=== PATIENT | male | born 1985 | race Caucasian/White ===

== ENCOUNTER 2017-02-22 19:02 | Emergency (ER) | payer OTHER ==
[2017-02-22 19:12] VITALS: TEMP 98.1
--- NOTE | 2017-02-22 19:41 | ED ---
ENT HPI - General Chief complaint: ENT Stated complaint: rt ear ache Time Seen by Provider: 02/22/17 19:18 Source: patient, RN notes reviewed Mode of arrival: ambulatory Limitations: no limitations - History of Present Illness Initial comments: Patient is 31-year-old male presents to the emergency room for evaluation of right ear pain. Patient states he was swimming at his father's house last Friday and noticed the pain began afterwards. Patient states he feels like his right ear is blocked. Patient states that decrease in hearing. Patient denies headache or dizziness. Patient denies fevers or chills. Patient denies sinus congestion or throat pain. Patient states that he has been applying over- the-counter ear drops without relief of symptoms. Patient denies any other symptoms or complaints. - Related Data Home Medications Medication Instructions Recorded Confirmed Ibuprofen 200 mg PO Q6HR PRN 02/22/17 02/22/17 Previous Rx's Medication Instructions Recorded Ofloxacin 0.3% Otic Soln [Floxin 5 drops RIGHT EAR BID 10 Days 02/22/17 0.3% Otic Soln] Allergies Allergy/AdvReac Type Severity Reaction Status Date / Time Penicillins Allergy Rash/Hives Verified 02/22/17 19:44 Review of Systems ROS Statement: Those systems with pertinent positive or pertinent negative responses have been documented in the HPI. ROS Other: All systems not noted in ROS Statement are negative. Past Medical History Past Medical History: No Reported History History of Any Multi-Drug Resistant Organisms: None Reported Past Surgical History: Orthopedic Surgery Additional Past Surgical History / Comment(s): left knee MCL Past Psychological History: No Psychological Hx Reported Smoking Status: Current every day smoker Past Alcohol Use History: Rare Past Drug Use History: Marijuana General Exam - General Exam Comments Initial Comments: Sitting in exam room, no acute distress. Limitations: no limitations General appearance: alert, in no apparent distress Head exam: Present: atraumatic, normocephalic, normal inspection Eye exam: Present: normal appearance Expanded TM/Canal exam: Cerumen Impaction: Right TM Neck exam: Present: normal inspection Respiratory exam: Present: normal lung sounds bilaterally. Absent: respiratory distress Cardiovascular Exam: Present: regular rate, normal rhythm, normal heart sounds Extremities exam: Present: normal inspection Back exam: Present: normal inspection Neurological exam: Present: alert, oriented X3, CN II-XII intact, normal gait Psychiatric exam: Present: normal affect, normal mood Skin exam: Present: warm, dry, intact, normal color. Absent: rash Course Vital Signs 02/22/17 19:07 Temperature 98.1 F Pulse Rate 75 Respiratory 16 Rate Blood Pressure 109/59 O2 Sat by Pulse 98 Oximetry Medical Decision Making - Medical Decision Making Patient is a 31-year-old male presents to the emergency room for evaluation of right ear pain. Patient did have cerumen impaction of right ear. Right ear was flushed. Patient states that he no longer has decrease in hearing. Patient states his ear canal still feels tender. Patient's ear canal is slightly erythematous and tender. Will place patient on antibiotic eardrops. Patient states she understands everything that was discussed with him. Return parameters discussed. Case discussed Dr. Castillo. Disposition Clinical Impression: Impacted cerumen of right ear, Otitis externa Disposition: HOME SELF-CARE Condition: Good Instructions: Otitis Externa (ED), Cerumen Impaction (ED) Additional Instructions: Apply eardrops as directed. Tylenol or Motrin as needed for discomfort. Please follow up with primary care provider in 1-2 days. If any new symptom arises or symptoms worsen, return to ER as soon as possible. Prescriptions: Ofloxacin 0.3% Otic Soln [Floxin 0.3% Otic Soln] 5 drops RIGHT EAR BID 10 Days Referrals: None,Stated [Primary Care Provider] - 1-2 days Time of Disposition: 20:14
[2017-02-22 20:38] VITALS: BP 107/68; PULSE 61; RESP 18
== END 2017-02-22 20:38 | disposition home or self-care (01) ==
LOC: EC 19:02
DX: H61.21 Impacted cerumen, right ear (principal); H60.91 Unspecified otitis externa, right ear; F17.200 Nicotine dependence, unspecified, uncomplicated; Z88.0 Allergy status to penicillin
CPT/HCPCS: 99282

== ENCOUNTER 2017-09-10 07:39 | Emergency (ER) | payer OTHER ==
[2017-09-10] MEDS ORDERED: SODIUM CHLORIDE 0.9% 1,000 ML IV STA (08:28)
[2017-09-10] MEDS ORDERED: KETOROLAC 30 MG/ML 1 ML VIAL IVP STA (08:28)
[2017-09-10 08:36] LABS: Basophils # (A) 0.1 k/uL (0-0.2); Basophils % (A) 1 %; Eosinophils # (A) 0.2 k/uL (0-0.7); Eosinophils % (A) 2 %; HCT 47.8 % (39.0-53.0); Lymphocytes # (A) 2.3 k/uL (1.0-4.8); Lymphocytes % (A) 25 %; MCH 30.8 pg (25.0-35.0); MCHC 31.3 g/dL (31.0-37.0); MCV 98.4 fL (80.0-100.0); Mean Platelet Volume 6.9; Monocytes # (A) 0.6 k/uL (0-1.0); Monocytes % (A) 6 %; Neutrophils # (A) 5.8 k/uL (1.3-7.7); Neutrophils % (A) 64 %; Platelet Count 297 k/uL (150-450); RBC 4.85 m/uL (4.30-5.90); RDW 13.9 % (11.5-15.5)
--- NOTE | 2017-09-10 08:43 | ED ---
General Adult HPI - General Chief complaint: Abdominal Pain Stated complaint: Kidney stones Time Seen by Provider: 09/10/17 08:16 Source: patient, RN notes reviewed Mode of arrival: ambulatory Limitations: no limitations - History of Present Illness Initial comments: Patient is a 31-year-old male who presents emergency room today with a significant past medical history of kidney stones, with chief complaint of possible kidney stone. Patient does admit that symptoms started 2 days ago he' s had some pressure some dysuria on urination. States pain seems to come and go. He was combative seen yesterday was waiting in the waiting room and the pain improves when he left because it was very busy. Patient states the symptoms are consistent with kidney stones that is had in the past. Currently rates his pain 12/16 stating that it has improved some since is been here in the emergency room. Patient denies any recent fever, chills, shortness of breath, chest pain, numbness or tingling, headaches or visual changes, or any other complaints. - Related Data Home Medications Medication Instructions Recorded Confirmed Ibuprofen 200 - 800 mg PO Q6HR PRN 02/22/17 09/10/17 Previous Rx's Medication Instructions Recorded Hydrocodone/Acetaminophen [[place] 1 each PO Q6HR PRN #20 tab 09/10/17 5-325] Ibuprofen [Motrin] 600 mg PO Q6HR PRN #40 day 09/10/17 Tamsulosin [Flomax] 0.4 mg PO DAILY #10 cap 09/10/17 Allergies Allergy/AdvReac Type Severity Reaction Status Date / Time Penicillins Allergy Rash/Hives Verified 09/10/17 08:03 Review of Systems ROS Statement: Those systems with pertinent positive or pertinent negative responses have been documented in the HPI. ROS Other: All systems not noted in ROS Statement are negative. Past Medical History Past Medical History: No Reported History Additional Past Medical History / Comment(s): kidney stones History of Any Multi-Drug Resistant Organisms: None Reported Past Surgical History: Orthopedic Surgery Additional Past Surgical History / Comment(s): left knee MCL Past Psychological History: No Psychological Hx Reported Smoking Status: Current every day smoker Past Alcohol Use History: Rare Past Drug Use History: Marijuana General Exam - General Exam Comments Initial Comments: General: The patient is awake and alert, in no distress, and does not appear acutely ill. Eye: Pupils are equal, round and reactive to light, extra-ocular movements are intact. No nystagmus. There is normal conjunctiva bilaterally. No signs of icterus. Ears, nose, mouth and throat: There are moist mucous membranes and no oral lesions. Neck: The neck is supple, there is no tenderness or JVD. Cardiovascular: There is a regular rate and rhythm. No murmur, rub or gallop is appreciated. Respiratory: Lungs are clear to auscultation, respirations are non-labored, breath sounds are equal. No wheezes, stridor, rales, or rhonchi. Gastrointestinal: Soft, non-distended, non-tender abdomen without masses or organomegaly noted. There is no rebound or guarding present. No CVA tenderness. Bowel sounds are unremarkable. Musculoskeletal: Normal ROM, no tenderness. Strength 5/5. Sensation intact. Pulses equal bilaterally 2+. Neurological: A&O x 3. CN II-XII intact, There are no obvious motor or sensory deficits. Coordination appears grossly intact. Speech is normal. Skin: Skin is warm and dry and no rashes or lesions are noted. Psychiatric: Cooperative, appropriate mood & affect, normal judgment. Limitations: no limitations Course Vital Signs 09/10/17 07:41 Temperature 97 F L Pulse Rate 84 Respiratory 16 Rate Blood Pressure 135/81 O2 Sat by Pulse 100 Oximetry Medical Decision Making - Medical Decision Making Patient's labs been reviewed. Does show some trace blood. Remaining labs unremarkable. X-ray does show a left-sided kidney stone. Results were discussed with patient. His symptoms are consistent with stones that is had in the past. He'll be treated with Flomax, pain medication to go home with and advised follow-up with urology. Advised return if symptoms increase or worsen. - Lab Data Result diagrams: 09/10/17 07:57 09/10/17 07:57 Lab Results 09/10/17 09/10/17 09/10/17 Range/Units 07:57 07:57 08:38 WBC 9.0 (3.8-10.6) k/uL RBC 4.85 (4.30-5.90) m/uL Hgb 15.0 (13.0-17.5) gm/dL Hct 47.8 (39.0-53.0) % MCV 98.4 (80.0-100.0) fL MCH 30.8 (25.0-35.0) pg MCHC 31.3 (31.0-37.0) g/dL RDW 13.9 (11.5-15.5) % Plt Count 297 (150-450) k/uL Neutrophils % 64 % Lymphocytes % 25 % Monocytes % 6 % Eosinophils % 2 % Basophils % 1 % Neutrophils # 5.8 (1.3-7.7) k/uL Lymphocytes # 2.3 (1.0-4.8) k/uL Monocytes # 0.6 (0-1.0) k/uL Eosinophils # 0.2 (0-0.7) k/uL Basophils # 0.1 (0-0.2) k/uL Sodium 144 (137-145) mmol/L Potassium 4.5 (3.5-5.1) mmol/L Chloride 104 (98-107) mmol/L Carbon Dioxide 29 (22-30) mmol/L Anion Gap 11 mmol/L BUN 13 (9-20) mg/dL Creatinine 1.18 (0.66-1.25) mg/dL Est GFR (MDRD) Af Amer >60 (>60 ml/min/1.73 sqM) Est GFR (MDRD) Non-Af >60 (>60 ml/min/1.73 sqM) Glucose 107 H (74-99) mg/dL Calcium 10.3 H (8.4-10.2) mg/dL Total Bilirubin 0.5 (0.2-1.3) mg/dL AST 22 (17-59) U/L ALT 37 (21-72) U/L Alkaline Phosphatase 60 (38-126) U/L Total Protein 7.3 (6.3-8.2) g/dL Albumin 4.5 (3.5-5.0) g/dL Lipase 47 (23-300) U/L Urine Color Yellow Urine Appearance Clear (Clear) Urine pH 5.5 (5.0-8.0) Ur Specific [place] 1.012 (1.001-1.035) Urine Protein Trace H (Negative) Urine Glucose (UA) Negative (Negative) Urine Ketones Negative (Negative) Urine Blood Trace H (Negative) Urine Nitrite Negative (Negative) Urine Bilirubin Negative (Negative) Urine Urobilinogen <2.0 (<2.0) mg/dL Ur Leukocyte Esterase Negative (Negative) Urine RBC 2 (0-5) /hpf Urine WBC 4 (0-5) /hpf Hyaline Casts 7 H (0-2) /lpf Urine Mucus Occasional H (None) /hpf Disposition Clinical Impression: Kidney stone Disposition: HOME SELF-CARE Condition: Good Instructions: Kidney Stones (ED) Additional Instructions: Please use medication as discussed. Please follow-up with urology/family doctor in the next 2 days of symptoms have not improved. Please return to emergency room if the symptoms increase or worsen or for any other concerns. Prescriptions: Hydrocodone/Acetaminophen [[place] 5-325] 1 each PO Q6HR PRN #20 tab PRN Reason: Pain Ibuprofen [Motrin] 600 mg PO Q6HR PRN #40 day PRN Reason: Pain Tamsulosin [Flomax] 0.4 mg PO DAILY #10 cap Referrals: None,Stated [Primary Care Provider] - 1-2 days Saul Stanton MD [STAFF PHYSICIAN] - 1-2 days Time of Disposition: 09:15
[2017-09-10 08:50] LABS: ALT 37 U/L (21-72); AST 22 U/L (17-59); Albumin 4.5 g/dL (3.5-5.0); Alkaline Phosphatase 60 U/L (38-126); Anion Gap 11 mmol/L; Blood Urea Nitrogen 13 mg/dL (9-20); Calcium 10.3 mg/dL (8.4-10.2); Carbon Dioxide 29 mmol/L (22-30); Chloride 104 mmol/L (98-107); Glucose 107 mg/dL (74-99); Lipase 47 U/L (23-300); Potassium 4.5 mmol/L (3.5-5.1); Sodium 144 mmol/L (137-145); Total Bilirubin 0.5 mg/dL (0.2-1.3); Total Protein 7.3 g/dL (6.3-8.2)
--- NOTE | 2017-09-10 08:53 | XR ---
EXAMINATION TYPE: XR KUB DATE OF EXAM: 09/10/2017 8:45 AM CLINICAL HISTORY: History of kidney stones presents with left-sided abdominal pain TECHNIQUE: Two Upright KUB images of the abdomen are obtained. COMPARISON: Abdominal x-ray and CT abdomen and pelvis May 15, 2009. FINDINGS: Scattered gas is seen in non-distended small bowel loops. Gas and fecal material is seen in non-distended colon. There is no visceromegaly or pneumoperitoneum appreciated. There is stable left -sided pelvic phlebolith over left pelvic brim. Suspect new 3 mm calculus left kidney upper to mid po le level at inferior L1 vertebral body. The lung bases are clear and the osseous structures are intac t. IMPRESSION: Overall nonobstructive bowel gas pattern. Suspect new 3 mm left renal calculus.
[2017-09-10 08:56] LABS: Appearance,Urine Clear (Clear); Bilirubin,Urine Negative (Negative); Blood,Urine Trace (Negative); Color,Urine Yellow; Glucose,Urine (UA) Negative (Negative); Hyaline Casts,Urine 7 /lpf (0-2); Ketones,Urine Negative (Negative); Leukocyte Esterase,Urine Negative (Negative); Mucus,Urine Occasional /hpf; Nitrite,Urine Negative (Negative); PH, Urine 5.5 (5.0-8.0); Protein,Urine Trace (Negative); RBC,Urine 2 /hpf (0-5); Specific Gravity,Urine 1.012 (1.001-1.035); Urobilinogen,Urine <2.0 mg/dL (<2.0); WBC,Urine 4 /hpf (0-5)
[2017-09-10 23:20] VITALS: BP 117/70; PULSE 67; RESP 18; TEMP 97.1
== END 2017-09-10 09:28 | disposition home or self-care (01) ==
LOC: EC 07:39
DX: N20.0 Calculus of kidney (principal); F17.200 Nicotine dependence, unspecified, uncomplicated; Z88.0 Allergy status to penicillin
CPT/HCPCS: 99284 ×2; 96374 ×2; 96361 ×2; 36415; 80053; 83690; 85025; 81001; 87086; 74018; J1885

== ENCOUNTER 2020-10-11 20:10 | Emergency (ER) | payer OTHER ==
[2020-10-11 20:26] VITALS: RESP 18
--- NOTE | 2020-10-11 20:46 | ED ---
ENT HPI - General Chief complaint: ENT Stated complaint: sore throat Time Seen by Provider: 10/11/20 20:31 Source: patient Mode of arrival: ambulatory Limitations: no limitations - History of Present Illness Initial comments: 34-year-old male presents to the emergency department with a chief complaint of sore throat. Patient reports he was diagnosed with "inflamed tonsils" about 20 days ago and was started on clindamycin which she has been taking for 16 days, 3 times a day. Patient reports he stopped taking them because he did not see any improvement in symptoms. Patient states like his throat is closing up but he has no difficulties breathing or swallowing. Denies any fevers or chills. Denies any facial , submandibular or neck swelling. Patient is a smoker and patient attributes all of the pain to that.denies changes to his voice. - Related Data Home Medications Medication Instructions Recorded Confirmed Ibuprofen 200 - 800 mg PO Q6HR PRN 02/22/17 09/10/17 Previous Rx's Medication Instructions Recorded Hydrocodone/Acetaminophen [[place] 1 each PO Q6HR PRN #20 tab 09/10/17 5-325] Ibuprofen [Motrin] 600 mg PO Q6HR PRN #40 day 09/10/17 Tamsulosin [Flomax] 0.4 mg PO DAILY #10 cap 09/10/17 Allergies Allergy/AdvReac Type Severity Reaction Status Date / Time Penicillins Allergy Rash/Hives Verified 10/11/20 20:26 Review of Systems ROS Statement: Those systems with pertinent positive or pertinent negative responses have been documented in the HPI. ROS Other: All systems not noted in ROS Statement are negative. Past Medical History Past Medical History: No Reported History Additional Past Medical History / Comment(s): kidney stones History of Any Multi-Drug Resistant Organisms: None Reported Past Surgical History: Orthopedic Surgery Additional Past Surgical History / Comment(s): left knee MCL Past Psychological History: No Psychological Hx Reported Smoking Status: Current every day smoker Past Alcohol Use History: Rare Past Drug Use History: Marijuana General Exam Limitations: no limitations General appearance: alert, in no apparent distress Head exam: Present: atraumatic, normocephalic, normal inspection Eye exam: Present: normal appearance, PERRL, EOMI Pupils: Present: normal accommodation ENT exam: Present: normal exam, normal oropharynx (no tonsillar erythema, enlargement or exudates. Uvula midline.), mucous membranes moist, TM's normal bilaterally, normal external ear exam Neck exam: Present: normal inspection, full ROM. Absent: tenderness, lymphadenopathy Respiratory exam: Present: normal lung sounds bilaterally. Absent: respiratory distress Cardiovascular Exam: Present: regular rate, normal rhythm, normal heart sounds Extremities exam: Present: normal inspection, full ROM, normal capillary refill. Absent: pedal edema, joint swelling Back exam: Present: normal inspection, full ROM Neurological exam: Present: alert, oriented X3, normal gait Psychiatric exam: Present: normal affect, normal mood Skin exam: Present: warm, dry, intact, normal color Course Vital Signs 10/11/20 10/11/20 20:22 22:25 Temperature 98 F 98.0 F Pulse Rate 84 82 Respiratory 18 18 Rate Blood Pressure 130/78 124/78 O2 Sat by Pulse 99 98 Oximetry Medical Decision Making - Medical Decision Making 34-year-old male presents to the emergency department with a chief complaint of sore throat. On physical examination, patient has no exudates, tonsillar or pharyngeal erythema or tonsillar enlargement. Uvula is midline. No changes to voice. no signs of the exact. Patient is not diabetic.No lymphadenopathy. X- ray of the soft tissue neck shows no acute findings. He does not have any dysphagia or odontophagia or dyspnea.patient was given 10 mg of IV Decadron. Reevaluation patient reports some upper but his symptoms. I advised him to follow up with an ENT specialist to take continues to have the symptoms. Return primers were thoroughly discussed the patient is understanding and agreeable. Case discussed with physician. Disposition Clinical Impression: Sore throat Disposition: HOME SELF-CARE Condition: Stable Instructions (If sedation given, give patient instructions): Strep Throat (DC) Additional Instructions: Alternate between Tylenol and Motrin for symptom medication. Return to emergency department if symptoms worsen. Is patient prescribed a controlled substance at d/c from ED?: No Referrals: None,Stated [Primary Care Provider] - 1-2 days Daquan Earl MD [STAFF PHYSICIAN] - 1-2 days Time of Disposition: 22:07
[2020-10-11] MEDS ORDERED: DEXAMETHASONE SOD PHOSPHATE 10 MG/ML 1 ML VIAL IM STA (20:55)
--- NOTE | 2020-10-11 21:54 | XR ---
EXAMINATION TYPE: XR soft tissue neck DATE OF EXAM: 10/11/2020 COMPARISON: NONE HISTORY: Sore throat TECHNIQUE: 2 views FINDINGS: Cervical vertebra have normal alignment. Disc spaces are normal. Posterior elements are int act. Epiglottis is normal. Subglottic trachea appears normal. Tonsils and adenoids appear normal. IMPRESSION: Normal cervical soft tissue exam.
[2020-10-11 22:26] VITALS: BP 124/78; PULSE 82; TEMP 98
== END 2020-10-11 22:26 | disposition home or self-care (01) ==
LOC: EC 20:10
DX: J02.9 Acute pharyngitis, unspecified (principal); F17.200 Nicotine dependence, unspecified, uncomplicated; Z88.0 Allergy status to penicillin
CPT/HCPCS: 70360; 99283; 96372; J1100